=== PATIENT | male | born 1990 | race African-American/Black ===

== ENCOUNTER 2019-01-18 07:40 | Emergency (ER) | payer SELFPAY ==
[2019-01-18 07:44] VITALS: BP 149/88; PULSE 82; RESP 18; TEMP 37; O2SAT 95
[2019-01-18 07:54] VITALS: RESP 4; O2SAT 95
[2019-01-18] MEDS: Albuterol/Ipratropium 3 ML UPD VIAL (07:54)
--- NOTE | 2019-01-18 08:25 | ED.GENADUL_ITS ---
Discharge Plan Disposition Patient Disposition: HOME Discharge Details Chief Complaint: RespSymp Clinical Impression: Acute asthma exacerbation Primary Care Provider: None,None ED Provider: Bimal Brown Home Meds and New Rx's Prescriptions: New prednisone 20 mg tablet 40 mg PO DAILY Qty: 8 RF: 0 albuterol sulfate 90 mcg/actuation HFA aerosol inhaler 2 puff IH Q4H PRN (Reason: wheeze) Qty: 8 RF: 0 Discharge Instructions Instructions: Albuterol (By breathing), Asthma (ED), Cigarette Smoking and Your Health (GEN) Additional Instructions: Please use prednisone and albuterol inhaler as prescribed. Please contact your primary care physician to arrange follow-up. Return to the ER for any worsening or new concerning symptoms. Stand Alone Forms: Work Release Discharge Data Discharge Date/Time-TO BE ENTERED AT DEPARTURE: 01/18/19 09:05 Medical Decision Making 8:40 --28-year-old male with history of asthma, intermittent smoker, here with shortness of breath and wheezing as well as cough over the past 2 weeks. Afebrile. Wheeze on arrival. Patient given 2 DuoNeb's and had significant improvement in wheeze, now resolved. Feels much better. --Chest x-ray reviewed and interpreted by Dr. Villavicencio who I spoke with on the phone - negative. Suspect acute asthma exacerbation exacerbated by seasonal allergies. Patient does not currently have a primary care physician and is not currently prescribed any medication to control asthma. Plan is to start him on prednisone burst and provide albuterol inhaler and spacer. I will ask care management to assist in arranging outpatient primary care follow-up. HPI General Mode of arrival: ambulatory . Date/Time Provider Initiated Documentation: 01/18/19 08:09 . Limitations to Documentation: no limitations . Information obtained by: patient . HPI Narrative: 28-year-old male with history of asthma presents with chief complaint of shortness of breath. Patient notes over the past 2 weeks has had progressive, worsening shortness of breath with wheezing. Patient notes symptoms same as prior asthma flare but more severe. Patient notes that he typically has respiratory symptoms in December and January related to seasonal allergies. He feels that this year is particularly bad. He has been taking Claritin and Sudafed regularly over the past couple weeks which does help symptoms temporarily. Symptoms on arrival severe. Much improved after neb treat. Patient does have intimately productive cough. No fever. No chills. He has had trace intermittent hemoptysis. He denies associated leg swelling or calf pain. No recent long distance travel. Patient does not currently have a primary care physician. He no longer has an albuterol inhaler. Related Data Home Medications Medication Instructions Recorded Confirmed albuterol sulfate 2 puff IH Q4H PRN #8 gm 01/18/19 prednisone 40 mg PO DAILY #8 tab 01/18/19 Previous Rx's Medication Instructions Recorded albuterol sulfate 2 puff IH Q4H PRN #8 gm 01/18/19 prednisone 40 mg PO DAILY #8 tab 01/18/19 General Stated Complaint: RespSymp ARNALDO: 3 Review of Systems Review of Systems All systems reviewed & are unremarkable except as noted in HPI and below Constitutional Denies fever(s) Cardiovascular Denies chest pain and Reports dyspnea Respiratory Reports cough, Reports hemoptysis (trace intermittent), Reports dyspnea and Reports wheezing Allergic/Immunologic Reports wheezing PFSH Medical History Asthma (Chronic) Social History Smoking/Tobacco Use Status: Never Alcohol Intake: current Alcohol Intake frequency: a few times a week Drug use: Daily Substance use type: marijuana Do you feel safe at home: Yes Do you feel safe in your relationship?: Yes Exam Const General: cooperative and no acute distress [facility] General nose exam: other (sinus congestion) Mouth: moist mucous membranes Throat: posterior oropharynx normal Eyes Conjunctivae: normal conjunctivae Sclera: normal sclerae Neck Neck: trachea midline and supple Lymphatic: no lymphadenopathy noted Resp Auscultation: clear to auscultation bilaterally, no rales, no rhonchi and wheezes expiratory wheezes Cardio Jugular venous pressure: no JVD Rate: regular rate and not tachycardic Rhythm: regular rhythm GI Palpation: soft, not firm, no guarding, no masses, not rigid and nontender Skin General skin exam: no rashes or lesions noted Neuro General: alert, awake, oriented x3 and tone normal Extrem General: no calf tenderness and no edema Course Vital Signs Temperature 37 C 01/18/19 07:44 Pulse 82 01/18/19 07:44 Respiratory Rate 18 01/18/19 07:44 Blood Pressure 149/88 H 01/18/19 07:44 Pulse Oximetry 95 01/18/19 07:44 Temperature 37 C 01/18/19 07:44 Temperature Source Skin 01/18/19 07:44 Pulse 82 01/18/19 07:44 Respiratory Rate 18 01/18/19 07:44 Respiratory Effort 01/18/19 07:44 Blood Pressure 149/88 H 01/18/19 07:44 Blood Pressure Position Sitting 01/18/19 07:44 Pulse Oximetry 95 01/18/19 07:54 Oxygen Delivery Method Room Air 01/18/19 07:54 Oxygen Flow Rate 0 01/18/19 07:54 Pain Level 4 01/18/19 07:44
--- NOTE | 2019-01-18 08:25 | DI.RAD_ITS ---
SYMPTOM/DIAGNOSIS: COUGH, SOB PA AND LATERAL CHEST: There are no prior comparison exams. The cardiac and mediastinal contours have a normal appearance. The lungs are clear. No infiltrate or effusion is seen. IMPRESSION: No acute abnormality.
[2019-01-18 08:34] VITALS: RESP 4; O2SAT 95
[2019-01-18] MEDS: Albuterol/Ipratropium 3 ML UPD VIAL UPD (08:34)
[2019-01-18] MEDS: predniSONE 20 MG TAB 60 MG PO (08:35)
[2019-01-18] MEDS: Albuterol HFA 8 GM 60 PUFF INH IH (09:00)
[2019-01-18 09:04] VITALS: BP 150/89; PULSE 80; RESP 16; TEMP 36.9; O2SAT 96
--- NOTE | 2019-01-19 08:49 | PDOC.ERCMPRO ---
Care Management Progress Note 01/19-Dr. Maddie Brown requested assistance with a PCP (Radha velasquez) f/u up in two weeks. Referral faxed to [facility] am.
== END 2019-01-18 09:05 | disposition home or self-care (01) ==
LOC: ER 08:57
PROVIDERS: Emergency Provider Student in an Organized Health Care Education/Training Program
DX: J45.901 Unspecified asthma with (acute) exacerbation (principal); R05 Cough; J30.2 Other seasonal allergic rhinitis; F17.210 Nicotine dependence, cigarettes, uncomplicated
CPT/HCPCS: 94640; 99284; 71046; J7512; J7620